=== PATIENT | female | born 1995 | race Two or more races ===

== ENCOUNTER 2025-06-13 15:00 | Emergency (ER) | payer MEDICAID, OTHER ==
[~2025-06-13] VITALS: Ht 160 cm; Wt 101.7 kg
[2025-06-13 15:03] VITALS: BP 133/91; PULSE 102; RESP 19; TEMP 98.2; O2SAT 95
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
--- NOTE | 2025-06-13 21:11 | DVH ---
CLINICAL HISTORY: L eye flashes TECHNIQUE: Helical scanning was performed of the orbits was performed without IV contrast. Multiplana r reconstructions were performed. This exam was performed according to our departmental dose optimiza tion program. Up-to-date CT equipment and radiation dose reduction techniques are utilized as appropr iate. CTDI 67 DLP 556.5 COMPARISON: None FINDINGS: The globes and extraocular muscles are symmetric. There is no evidence for intraconal or extra paul l mass, inflammatory process, or fluid collection. No acute fracture is seen. There is mild to moderate right sphenoid sinus mucosal thickening with secretions. The lacrimal gland s are unremarkable. IMPRESSION: Cyag-eo-bzcvncio right sphenoid sinus microsol thickening with secretions. Otherwise, unremarkable no ncontrast CT examination of the orbits.
[2025-06-13] MEDS ORDERED: AUG875T PO (21:32)
== END 2025-06-14 03:25 | disposition home or self-care (01) ==
LOC: ER 15:00
DX: J01.30 Acute sphenoidal sinusitis, unspecified (principal); H53.19 Other subjective visual disturbances; Z79.899 Other long term (current) drug therapy
CPT/HCPCS: 70480